=== PATIENT | male | born 1980 | race Caucasian/White ===

== ENCOUNTER 2021-05-22 08:46 | Outpatient (RCR) | payer BC, SELFPAY ==
[2021-05-22 12:30] VITALS: BP 141/85; PULSE 70; RESP 16; TEMP 35.6; O2SAT 99
[2021-05-22] MEDS: diphenhydrAMINE HCl CAP 25 MG CAPSULE PO (12:35)
[2021-05-22] MEDS: ACETAMINOPHEN 325 MG TABLET 650 MG PO (12:36)
[2021-05-22] MEDS: FAMOTIDINE 20 MG TABLET PO (12:36)
[2021-05-22 14:12] VITALS: BP 137/84
--- NOTE | 2021-05-23 09:52 | PC.NURSE ---
Called Mr Bowles and he stated outside of being tired he is doing better. He has no questions at this time.
== END 2021-05-22 17:00 ==
LOC: AMCINF 08:46
PROVIDERS: PCP Family Medicine; Visit Provider Internal Medicine Hematology & Oncology
DX: U07.1 COVID-19 (principal)
CPT/HCPCS: A9270; M0243; Q0243

== ENCOUNTER 2021-12-10 16:46 | Emergency (ER) | payer BC, SELFPAY ==
[2021-12-10 16:50] VITALS: BP 144/84; PULSE 84; RESP 16; TEMP 36.5; O2SAT 100
--- NOTE | 2021-12-10 17:02 | ED.GENADULT ---
HPI - General Adult General Chief complaint: Upper Respiratory Infection Stated complaint: lump on left side of throat Time Seen by Provider: 12/10/21 16:55 Source: patient Mode of arrival: ambulatory Limitations: no limitations History of Present Illness HPI narrative: Patient presents today complaining of swelling to his left neck that started today with some pain to the neck that started yesterday. Denies any recent illness, but states he has been feeling rundown recently. States the pain is only present when he touches the area. Currently rates the pain with pressure 3/10. He has tried no medication for symptoms prior to arrival. Related Data Home Medications Medication Instructions Recorded Confirmed losartan 100 mg tablet 1 tablet PO DAILY 12/10/21 12/10/21 omeprazole 40 mg capsule,delayed 1 cap PO DAILY 12/10/21 12/10/21 release sertraline 100 mg tablet 1 tablet PO DAILY 12/10/21 12/10/21 Allergies Allergy/AdvReac Type Severity Reaction Status Date / Time No Known Allergies Allergy Verified 12/10/21 16:54 Review of Systems Review of Systems: CONSTITUTIONAL: Denies body aches, fever, chills, or sweats. EYES: Denies visual changes, redness, or discharge. ENT: Denies rhinorrhea, congestion, sore throat, or otalgia.+ Neck tenderness and swelling CARDIOVASCULAR: Denies chest pain, palpitations, or edema. RESPIRATORY: Denies cough or dyspnea. GASTROINTESTINAL: Denies abdominal pain, nausea, vomiting, or diarrhea. GENITOURINARY: Denies dysuria or hematuria. SKIN: Denies rash, itching, or wounds. MUSCULOSKELETAL: Denies back pain, joint pain, or myalgia. NEUROLOGIC: Denies headache, numbness, tingling, or weakness. PSYCH: Denies depression or anxiety. PMFSH Social History Social History Smoking status: Former smoker Additional smoking assessment comments: socially in college Spiritual care concerns: No Comments At time of signature, I have reviewed and agree with nursing past medical, surgical, social and family history unless otherwise noted. Please see nursing chart for further information. There is no relevant family history pertinent to the presenting complaint Exam Narrative: GENERAL: Well-appearing, well-nourished, and in no acute distress. HEAD: Normocephalic, atraumatic. EYES: EOMI. No redness or drainage. Conjunctivae normal. ENT: Mucous membranes pink and moist. Nares clear. No rhinorrhea. TMs normal bilaterally. Throat normal. Uvula midline. NECK: Normal AROM. Supple. Left tonsillar lymph node tenderness with mild swelling. CHEST: No respiratory distress. EXTREMITIES: Normal range of motion. No edema. SKIN: Warm, dry, no rash. Capillary refill normal. Normal skin turgor. NEURO: No focal deficits. Alert and oriented x3. Gait steady. PSYCH: Normal affect. No signs of depression or anxiety. Course Course Level of Care: Express Care Visit Vital Signs Vital signs: Vital Signs Temperature 97.7 F 12/10/21 16:50 Pulse Rate 84 12/10/21 16:50 Respiratory Rate 16 12/10/21 16:50 Blood Pressure 144/84 H 12/10/21 16:50 Pulse Oximetry 100 12/10/21 16:50 Oxygen Delivery Room Air 12/10/21 16:50 Temperature 97.7 F 12/10/21 16:50 Pulse Rate 84 12/10/21 16:50 Respiratory Rate 16 12/10/21 16:50 Blood Pressure 144/84 H 12/10/21 16:50 Pulse Oximetry 100 12/10/21 16:50 Oxygen Delivery Room Air 12/10/21 16:50 Reviewed. Pt has been instructed to follow up with his PCP regarding his elevated blood pressure today. Medical Decision Making Differential Diagnosis Differential Diagnosis: Lymphadenitis, AOM, viral syndrome, pharyngitis Vital Signs Vital Signs: Vital Signs Temperature 97.7 F 12/10/21 16:50 Pulse Rate 84 12/10/21 16:50 Respiratory Rate 16 12/10/21 16:50 Blood Pressure 144/84 H 12/10/21 16:50 Pulse Oximetry 100 12/10/21 16:50 Oxygen Delivery Room Air 0
== END 2021-12-10 17:17 | disposition home or self-care (01) ==
PROVIDERS: Emergency Provider Nurse Practitioner; PCP Family Medicine
DX: R59.1 Generalized enlarged lymph nodes (principal); R59.0 Localized enlarged lymph nodes; Z87.891 Personal history of nicotine dependence
CPT/HCPCS: 99211; G0463

== ENCOUNTER 2025-01-07 00:17 | Day surgery (SDC) | payer BC, SELFPAY ==
[2024-12-24 09:54] VITALS: BMI 38.7
--- OUTSIDE RECORDS SUMMARY | 2025-01-07 00:19 | XMS_ITS | Patient Health Record ---
Author Organization [facility] [employer] Address [address] [place] [address] Care Team Providers Care Manager Telemarketing Name Role Phone David OCONNOR, Lion Primary Care Provider Unavailab bill Keily Ander Unavailable [phone] Allergies No Known Allergies Results Component Value Reference Range Notes UDT Reviewed date:10/19/2024 08:51:24 AM Interpretation: Performing Lab: Notes/Report: THC NEG 0 - 50 ng/ml Cocaine NEG 0 - 300 ng/ml Amphetamine NEG 0 - 1000 ng/ml Buprenorphine (BUP) NEG 0 - 10 ng/ml Secobarbital (Bar) NEG 0 - 300 ng/ml Oxazepam (BZO) NEG 0 - 300 ng/ml 7-ubmylzhgta-1,3-ajtdcyoh-2,3-diphenylpyrrolidine (OCTAVIANO P) NEG 0 - 300 ng/ml Methamphetamine (MET) NEG 0 - 1000 ng/ml Methylenedioxymethamphetamine (MDMA) NEG 0 - 500 ng/ml Morphine (MOP 300/[id number]) NEG 0 - 300 ng/ml Methadone (MTD) NEG 0 - 300 ng/ml Phencyclidine (PCP) NEG 0 - 25 ng/ml Nortriptyline (TCA) NEG 0 - 1000 ng/ml Oxycodone NEG 0 - 300 ng/ml x NEG 0 - 300 ng/ml UDT Reviewed date:05/14/2024 09:30:45 AM Interpretation: Performing Lab: Notes/Report: THC N 0 - 50 ng/ml Cocaine N 0 - 300 ng/ml Amphetamine N 0 - 1000 ng/ml Buprenorphine (BUP) N 0 - 10 ng/ml Secobarbital (Bar) N 0 - 300 ng/ml Oxazepam (BZO) N 0 - 300 ng/ml 5-pcjuosardq-3,0-cecwzage-0,3-diphenylpyrrolidine (OCTAVIANO P) N 0 - 300 ng/ml Methamphetamine (MET) N 0 - 1000 ng/ml Methylenedioxymethamphetamine (MDMA) N 0 - 500 ng/ml Morphine (MOP 300/EYY1992) N 0 - 300 ng/ml Methadone (MTD) N 0 - 300 ng/ml Phencyclidine (PCP) N 0 - 25 ng/ml Nortriptyline (TCA) N 0 - 1000 ng/ml Oxycodone N 0 - 300 ng/ml x N 0 - 300 ng/ml Reason For Referral No Information Medications Medication SIG (Take, Route, Frequency, Duration) Notes Start Date End Date Status Omeprazole 40 MG TAKE 1 CAPSULE BY MO [facility] DAILY Oral; Duration: 90 Days Active Trintellix 20 MG 1 tablet Orally Once a day; Duration: 90 days Active Losartan Potassium 100 MG TAKE 1 TABLET BY MOUTH EVERY DAY Oral; Duration: 90 Days Active Social History Tobacco Use: Social History Observation Description Date Details (start date - stop date) Never Smoker NA - NA Sex Assigned At : Social History Observation Description Sex Assigned At Male Tobacco Control (Standard) Question Answer Notes Tobacco use: Nonsmoker AUDIT-C (Standard) Question Answer Notes Did you have a drink contain ing alcohol in the past year? Yes How often did you have six o r more drinks on one occasion in the past year? Never (0 point) How many drinks did you have on a typical day when you were drinking in the past year? 1 or 2 drinks (0 point) How often did you have a dri nk containing alcohol in the past year? 2 to 3 times a week (3 points) Problems Problem Type SNOMED Code ICD Code Onset Dates Problem Status W/U Status Risk Notes Problem Severe recurrent major depression without psychotic features (56041530) Major depressive disorder, recurrent severe without psychotic features (F33.2) Active confirmed Problem Essential hypertension (56150061) Essential (primary) hypertension (I10) Active confirmed Problem Generalized anxiety disorder (93448494) DINAH (generalized anxiety disorder) (F41.1) Active confirmed Problem Attention deficit hyperactivity disorder (843522040) Attention deficit hyperactivity disorder (ADHD), unspecified ADHD type (F90.9) Active confirmed Problem Poor concentration (78580353) Poor concentration (R41.840) Active confirmed Vital Signs Heart Rate 75 /min 10/29/2024 255.6 Height-cm 167.64 cm 10/29/2024 255.6 Blood pressure diastolic 82 mm Hg 10/29/2024 255 .6 Weight-kg 115.94 kg 10/29/2024 255.6 Height 66.0 in 10/29/2024 255.6 Blood pressure systolic 127 mm Hg 10/29/2024 255. 6 Weight 255.6 lbs 10/29/2024 255.6 BMI 41.25 kg/m2 10/29/2024 255.6 Encounters Encounter Location Date Provider Diagnosis [place] [id number] [facility] [address] [place] [address] 05/14/2024 Ander Keily Major depressive disorder, recurrent severe without psychotic features F33.2 and DINAH (generalized anxiety disorder) F41.1 [place] [id number] [facility] [address] [facility] [address] [place] [address] 05/28/2024 Ander Keily Major depressive disorder, recurrent severe without psychotic features F33.2 and DINAH (generalized anxiety disorder) F41.1 [place] [address] [facility] [address] [place] [address] 06/25/2024 Ander Keily Major depressive disorder, recurrent severe without psychotic features F33.2 ; DINAH (generalized anxiety disorder) F41.1 and Essential (primary) hypertension I10 [place] [id number] [address] 09/17/2024 Ander Keily [facility] [address] [facility] [address] [place] [address] 09/24/2024 Ander Keily Encounter for screen ing for cardiovascular disorders Z13.6 ; Major depressive disorder, recurrent severe without psychotic features F33.2 ; DINAH (generalized anxiety disorder) F41.1 ; Essential (primary) hypertension I10 and Poor concentration R41.840 [facility] [address] [facility] [address] [place] [address] 10/15/2024 Ander Keily Attention deficit hyperactivity disorder (ADHD), unspecified ADHD type F90.9 [place] [id number] [place] [address] 10/29/2024 Ander Keily Major depressive disorder, recurrent severe without psychotic features F33.2 ; DINAH (generalized anxiety disorder) F41.1 ; Essential (primary) hypertension I10 ; Encounter for screening for depression Z13.31 and Encounter for screening for cardiovascular disorders Z13.6 [facility] [employer] [facility] [address] [place] [address] 09/07/2024 Ander Michaud [facility] [employer] [facility] [address] [place] [address] 09/02/2024 Ander Keily [facility] [employer] [facility] [address] [facility] [address] [place] [address] 09/02/2024 Ander Keily [facility] [employer] [facility] [address] [place] [address] 12/28/2024 Ander Desaiam Major depressive disorder, recurrent severe without psychotic features F33.2 Assessments Encounter Date Diagnosis (ICD Code) Assessment Notes Treatment Notes Treatment Clinical Notes Section Notes 05/14/2024 Major depressive disorder, recurrent severe without psychotic features (ICD-10 - F33.2) Electronic Prior Authorization was requested for Trintellix 20 MG Tablet. Provider can order medication once approval received. Major Depressive Disorder, recurrent - Assessment: Patient reports a long history of depression with periods of remission, currently experiencing a depressive episode for the last 6 months. He failed previous treatments with bupropion, sertraline, and escitalopram. Symptoms include lack of motivation, decreased energy, sleep disturbances, weight gain, and occasional passing thoughts of suicide. - Plan: - Taper off escitalopram: Decrease to 5 mg daily for one week, then discontinue. - Initiate Trintellix: Start at 5 mg daily for one week, increase to 10 mg daily for one week, and then increase to 20 mg daily. - Begin prior authorization process for TMS therapy. - Reassess his mood improvement in 4-6 weeks to determine the need for TMS or further treatment adjustments. Anxiety - Assessment: Patient reports experiencing anxiety alongside depression. - Plan: Monitor anxiety levels during follow-up visits and adjust treatment as needed. Anger and irritability - Assessment: Patient reports quickness to anger, mainly directed at his . Triggers include things not working properly and feeling undermined or unappreciated. - Plan: - Continue therapy with Mita Ramsey to address anger management and relationship issues. - Monitor the effect of Trintellix on his irritability during follow-up visits. Medication-induced sexual side effects - Assessment: Patient reports delayed ejaculation as a side effect of escitalopram. - Plan: - Taper off escitalopram as mentioned above. - Initiate Trintellix, which may help reverse sexual side effects. - Monitor sexual side effects during follow-up visits. Alcohol consumption - Assessment: Patient reports drinking 2-3 drinks every other day. - Plan: Encourage the patient to reduce alcohol consumption and monitor during follow-up visits. Family history of bipolar disorder - Assessment: Patient has a family history of bipolar disorder but has not experienced any manic episodes. - Plan: Continue to monitor for any signs of his mood elevation during follow-up visits. Follow-up - Plan: - Schedule a follow-up appointment in 2 weeks to assess medication tolerance and initial response. - Determine follow-up frequency based on the patient's progress. - Goal is to achieve at least 50% improvement in 4-6 weeks. 05/14/2024 DINAH (generalized anxiety disorder) (ICD-10 - F41.1) Major Depressive Disorder, recurrent - Assessment: Patient reports a long history of depression with periods of remission, currently experiencing a depressive episode for the last 6 months. He failed previous treatments with bupropion, sertraline, and escitalopram. Symptoms include lack of motivation, decreased energy, sleep disturbances, weight gain, and occasional passing thoughts of suicide. - Plan: - Taper off escitalopram: Decrease to 5 mg daily for one week, then discontinue. - Initiate Trintellix: Start at 5 mg daily for one week, increase to 10 mg daily for one week, and then increase to 20 mg daily. - Begin prior authorization process for TMS therapy. - Reassess his mood improvement in 4-6 weeks to determine the need for TMS or further treatment adjustments. Anxiety - Assessment: Patient reports experiencing anxiety alongside depression. - Plan: Monitor anxiety levels during follow-up visits and adjust treatment as needed. Anger and irritability - Assessment: Patient reports quickness to anger, mainly directed at his . Triggers include things not working properly and feeling undermined or unappreciated. - Plan: - Continue therapy with Mita Ramsey to address anger management and relationship issues. - Monitor the effect of Trintellix on his irritability during follow-up visits. Medication-induced sexual side effects - Assessment: Patient reports delayed ejaculation as a side effect of escitalopram. - Plan: - Taper off escitalopram as mentioned above. - Initiate Trintellix, which may help reverse sexual side effects. - Monitor sexual side effects during follow-up visits. Alcohol consumption - Assessment: Patient reports drinking 2-3 drinks every other day. - Plan: Encourage the patient to reduce alcohol consumption and monitor during follow-up visits. Family history of bipolar disorder - Assessment: Patient has a family history of bipolar disorder but has not experienced any manic episodes. - Plan: Continue to monitor for any signs of his mood elevation during follow-up visits. Follow-up - Plan: - Schedule a follow-up appointment in 2 weeks to assess medication tolerance and initial response. - Determine follow-up frequency based on the patient's progress. - Goal is to achieve at least 50% improvement in 4-6 weeks. 05/28/2024 Major depressive disorder, recurrent severe without psychotic features (ICD-10 - F33.2) Electronic Prior Authorization was requested for Trintellix 20 MG Tablet. Provider can order medication once approval received. Depression - Assessment: Patient reports feeling a little better after transitioning to Trintellix 10 mg daily and discontinuing the SSRI. They still experience some anxiety and sadness but feel less hopeless. No suicidal ideation reported. - Plan: - Increase Trintellix dosage to 20 mg daily for one month. - Reassess mood and symptoms in 4 weeks. - If irritability or agitation worsens at 20 mg, reduce the dosage back to 10 mg and consider pharmacogenetic testing. Anxiety - Assessment: Patient's anxiety appears to be stabilizing with the current treatment. - Plan: - No changes to the current treatment plan. - Reassess in 4 weeks. Anger and irritability - Assessment: Patient reports no recent temper outbursts or mood swings. - Plan: - No changes to the current treatment plan. - Reassess in 4 weeks. Sexual side effects - Assessment: Patient reports improvement in sexual function since transitioning to Trintellix. Patient confirms ability to have erections and ejaculate. - Plan: - Continue to monitor for any changes. - Reassess in 4 weeks. Transcranial Magnetic Stimulation (TMS) therapy - Assessment: Patient's insurance has not yet approved TMS therapy. - Plan: - Continue to follow up with insurance for approval. - If approved, contact the patient to schedule TMS therapy sessions. Follow-up - Plan: - Schedule follow-up appointment in 4 weeks to reassess the patient's progress and make any necessary adjustments to the treatment plan. - Instruct patient to contact if symptoms worsen or new side effects develop. 06/25/2024 Major depressive disorder, recurrent severe without psychotic features (ICD-10 - F33.2) Electronic Prior Authorization was requested for Trintellix 20 MG Tablet. Provider can order medication once approval received. Depression - Assessment: Patient reports significant improvement in depressive symptoms since the last visit, with a depression score of 6 (previously 17). Patient reports feeling much better and more even keel since starting Quintalics. - Plan: - Continue current treatment with Quintalics 10 mg daily. - Schedule a follow-up appointment in 3 months. - Encourage the patient to contact the clinic if symptoms worsen or if they need to see the provider sooner. Anxiety - Assessment: Patient reports feeling more even-keeled and less mood swings since starting Quintalics. - Plan: - Continue monitoring anxiety levels during follow-up appointments. - Encourage the patient to practice stress management techniques and seek support if needed. Anger Management - Assessment: Patient reports only two instances of losing temper in the past month, which is an improvement. Patient notes that anger episodes were shorter and not directed at others. - Plan: - Encourage the patient to continue monitoring their anger and utilize coping strategies when feeling overwhelmed or irritated. Hypertension - Assessment: Patient is currently taking Losartan for hypertension management. Patient reports blood pressure is stable. - Plan: - Add Losartan to the medication list. - Encourage the patient to monitor their blood pressure regularly and report any significant changes. - Continue current treatment and reassess during the next appointment. Follow-up - Plan: - Schedule a follow-up appointment in 3 months. - Remind the patient that they can contact the clinic or walk in if they need to see the provider sooner. - Prescribe 90-day supply of medication. 10/15/2024 Attention deficit hyperactivity disorder (ADHD), unspecified ADHD type (ICD-10 - F90.9) Summary of Findings Subject: Male, age 34 to 43 Assessment Date: October 15, 2024 ASRS Result: Indicative of ADHD Cognitive Markers Outside Typical Range: 4 markers This profile shows strong executive function in planning and working memory, but significant deficits in attention accuracy, sustained attention, and impulsivity. These issues are consistent with the ADHD profile noted in the ASRS results. Cognitive Profile Analysis Strengths: Planning (76th percentile): Strong ability to organize and plan. Working Memory (65th percentile): Well-developed short-term executive storage and manipulation. Deficits: Attention (Feature Match): Number of Errors: 93rd percentile (very high) suggests difficulty filtering distractions or staying accurate under time pressure. Reaction Time: Borderline slow, suggesting possible hesitation or inconsistent focus. Impulsivity: Marked as both faster and less accurate, reinforcing a pattern of response impulsiveness. Sustained Attention (SART): Commission errors (1st percentile) and Reaction time variability (1st percentile) show extremely poor consistency and over-responsive ness. Slowing after errors (12th percentile) suggests inadequate adjustment or self-monitoring after mistakes. Response Inhibition: All markers fall in the lower third percentile range, indicating mild difficulty suppressing responses to irrelevant or conflicting information. Non-Pharmacolog ic Treatment Recommendations 1. Impulse Control and Self-Regulation Training Practice delaying responses during tasks: Use go-no-go or stop-signal training games Introduce deliberate response delay techniques (counting to three before acting) Role-play situations requiring inhibition and practice alternate responses 2. Attention Consistency Training Use attention-shapi ng tools such as: Digital programs like Cognifit, BrainHQ, or Peak that emphasize sustained focus and error monitoring Paper-based tasks (e.g., grid julia-through tasks) that require slow, careful work over time 3. Mindfulness-Bas ed Attention and Error Awareness Introduce 10 to 15 minutes daily of mindfulness practice to improve post-error reflection and reduce automatic responding Use guided sessions that emphasize body scan or focused breathing 4. CBT Strategies Focused on Monitoring and Response Adjustment Address error patterns and impulsive actions by: Creating cognitive reframing strategies for mistakes Building internal cueing systems for self-checks during work Using structured worksheets to track types and patterns of errors 5. Structured Environment with External Feedback Employ visual checklists and real-time progress indicators during tasks Provide external feedback at regular intervals (e.g., reminders, timers, performance alerts) 6. Physical Activity with Coordination Elements Activities such as martial arts, dance, or team sports that demand inhibition, timing, and redirection Target 30 to 40 minutes of activity, 4 to 5 times per week 7. Routine Stabilization Establish consistent wake, meal, and sleep schedules to reduce cognitive fatigue Minimize multitasking and build transitions between work and rest periods This profile reflects a classic presentation of ADHD with strong planning capacity but significant breakdowns in [id number] t regulation, accuracy, and sustained focus. Treatment should focus on improving error monitoring, attention consistency, and impulse delay through structured training and behavioral strategies. 10/29/2024 Major depressive disorder, recurrent severe without psychotic features (ICD-10 - F33.2) Electronic Prior Authorization was requested for Trintellix 20 MG Tablet. Provider can order medication once approval received. Electronic Prior Authorization was requested for Trintellix 20 MG Tablet. Provider can order medication once approval received. Non-Pharmacologic Treatment Recommendations1. Impulse Control and Self-Regulation TrainingPractice delaying responses during tasks: Use go-no-go or stop-signal training games Introduce deliberate response delay techniques (counting to three before acting) Role-play situations requiring inhibition and practice alternate responses 2. Attention Consistency TrainingUse attention-shaping tools such as: Digital programs like Cognifit, BrainHQ, or Peak that emphasize sustained focus and error monitoring Paper-based tasks (e.g., grid julia-through tasks) that require slow, careful work over time 3. Mindfulness-Based Attention and Error AwarenessIntroduce 10 to 15 minutes daily of mindfulness practice to improve post-error reflection and reduce automatic responding Use guided sessions that emphasize body scan or focused breathing 4. CBT Strategies Focused on Monitoring and Response AdjustmentAddress error patterns and impulsive actions by: Creating cognitive reframing strategies for mistakes Building internal cueing systems for self-checks during work Using structured worksheets to track types and patterns of errors 5. Structured Environment with External FeedbackEmploy visual checklists and real-time progress indicators during tasks Provide external feedback at regular intervals (e.g., reminders, timers, performance alerts) 6. Physical Activity with Coordination ElementsActivities such as martial arts, dance, or team sports that demand inhibition, timing, and redirection Target 30 to 40 minutes of activity, 4 to 5 times per week 7. Routine StabilizationEstabli sh consistent wake, meal, and sleep schedules to reduce cognitive fatigue Minimize multitasking and build transitions between work and rest periods 09/24/2024 Encounter for screening for cardiovascular disorders (ICD-10 - Z13.6) 10/29/2024 DINAH (generalized anxiety disorder) (ICD-10 - F41.1) Non-Pharmacologic Treatment Recommendations1. Impulse Control and Self-Regulation TrainingPractice delaying responses during tasks: Use go-no-go or stop-signal training games Introduce deliberate response delay techniques (counting to three before acting) Role-play situations requiring inhibition and practice alternate responses 2. Attention Consistency TrainingUse attention-shaping tools such as: Digital programs like Cognifit, BrainGFRANQQ, or Peak that emphasize sustained focus and error monitoring Paper-based tasks (e.g., grid julia-through tasks) that require slow, careful work over time 3. Mindfulness-Based Attention and Error AwarenessIntroduce 10 to 15 minutes daily of mindfulness practice to improve post-error reflection and reduce automatic responding Use guided sessions that emphasize body scan or focused breathing 4. CBT Strategies Focused on Monitoring and Response AdjustmentAddress error patterns and impulsive actions by: Creating cognitive reframing strategies for mistakes Building internal cueing systems for self-checks during work Using structured worksheets to track types and patterns of errors 5. Structured Environment with External FeedbackEmploy visual checklists and real-time progress indicators during tasks Provide external feedback at regular intervals (e.g., reminders, timers, performance alerts) 6. Physical Activity with Coordination ElementsActivities such as martial arts, dance, or team sports that demand inhibition, timing, and redirection Target 30 to 40 minutes of activity, 4 to 5 times per week 7. Routine StabilizationEstabli sh consistent wake, meal, and sleep schedules to reduce cognitive fatigue Minimize multitasking and build transitions between work and rest periods 12/28/2024 Major depressive disorder, recurrent severe without psychotic features (ICD-10 - F33.2) 09/24/2024 DINAH (generalized anxiety disorder) (ICD-10 - F41.1) 10/29/2024 Essential (primary) hypertension (ICD-10 - I10) Non-Pharmacologic Treatment Recommendations1. Impulse Control and Self-Regulation TrainingPractice delaying responses during tasks: Use go-no-go or stop-signal training games Introduce deliberate response delay techniques (counting to three before acting) Role-play situations requiring inhibition and practice alternate responses 2. Attention Consistency TrainingUse attention-shaping tools such as: Digital programs like Cognifit, BrainHQ, or Peak that emphasize sustained focus and error monitoring Paper-based tasks (e.g., grid julia-through tasks) that require slow, careful work over time 3. Mindfulness-Based Attention and Error AwarenessIntroduce 10 to 15 minutes daily of mindfulness practice to improve post-error reflection and reduce automatic responding Use guided sessions that emphasize body scan or focused breathing 4. CBT Strategies Focused on Monitoring and Response AdjustmentAddress error patterns and impulsive actions by: Creating cognitive reframing strategies for mistakes Building internal cueing systems for self-checks during work Using structured worksheets to track types and patterns of errors 5. Structured Environment with External FeedbackEmploy visual checklists and real-time progress indicators during tasks Provide external feedback at regular intervals (e.g., reminders, timers, performance alerts) 6. Physical Activity with Coordination ElementsActivities such as martial arts, dance, or team sports that demand inhibition, timing, and redirection Target 30 to 40 minutes of activity, 4 to 5 times per week 7. Routine StabilizationEstabli sh consistent wake, meal, and sleep schedules to reduce cognitive fatigue Minimize multitasking and build transitions between work and rest periods 06/25/2024 DINAH (generalized anxiety disorder) (ICD-10 - F41.1) Depression - Assessment: Patient reports significant improvement in depressive symptoms since the last visit, with a depression score of 6 (previously 17). Patient reports feeling much better and more even keel since starting Quintalics. - Plan: - Continue current treatment with Quintalics 10 mg daily. - Schedule a follow-up appointment in 3 months. - Encourage the patient to contact the clinic if symptoms worsen or if they need to see the provider sooner. Anxiety - Assessment: Patient reports feeling more even-keeled and less mood swings since starting Quintalics. - Plan: - Continue monitoring anxiety levels during follow-up appointments. - Encourage the patient to practice stress management techniques and seek support if needed. Anger Management - Assessment: Patient reports only two instances of losing temper in the past month, which is an improvement. Patient notes that anger episodes were shorter and not directed at others. - Plan: - Encourage the patient to continue monitoring their anger and utilize coping strategies when feeling overwhelmed or irritated. Hypertension - Assessment: Patient is currently taking Losartan for hypertension management. Patient reports blood pressure is stable. - Plan: - Add Losartan to the medication list. - Encourage the patient to monitor their blood pressure regularly and report any significant changes. - Continue current treatment and reassess during the next appointment. Follow-up - Plan: - Schedule a follow-up appointment in 3 months. - Remind the patient that they can contact the clinic or walk in if they need to see the provider sooner. - Prescribe 90-day supply of medication. 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 Provider can order medication once approval received. 05/28/2024 DINAH (generalized anxiety disorder) (ICD-10 - F41.1) Depression - Assessment: Patient reports feeling a little better after transitioning to Trintellix 10 mg daily and discontinuing the SSRI. They still experience some anxiety and sadness but feel less hopeless. No suicidal ideation reported. - Plan: - Increase Trintellix dosage to 20 mg daily for one month. - Reassess mood and symptoms in 4 weeks. - If irritability or agitation worsens at 20 mg, reduce the dosage back to 10 mg and consider pharmacogenetic testing. Anxiety - Assessment: Patient's anxiety appears to be stabilizing with the current treatment. - Plan: - No changes to the current treatment plan. - Reassess in 4 weeks. Anger and irritability - Assessment: Patient reports no recent temper outbursts or mood swings. - Plan: - No changes to the current treatment plan. - Reassess in 4 weeks. Sexual side effects - Assessment: Patient reports improvement in sexual function since transitioning to Trintellix. Patient confirms ability to have erections and ejaculate. - Plan: - Continue to monitor for any changes. - Reassess in 4 weeks. Transcranial Magnetic Stimulation (TMS) therapy - Assessment: Patient's insurance has not yet approved TMS therapy. - Plan: - Continue to follow up with insurance for approval. - If approved, contact the patient to schedule TMS therapy sessions. Follow-up - Plan: - Schedule follow-up appointment in 4 weeks to reassess the patient's progress and make any necessary adjustments to the treatment plan. - Instruct patient to contact if symptoms worsen or new side effects develop. 09/24/2024 Essential (primary) hypertension (ICD-10 - I10) 06/25/2024 Essential (primary) hypertension (ICD-10 - I10) Depression - Assessment: Patient reports significant improvement in depressive symptoms since the last visit, with a depression score of 6 (previously 17). Patient reports feeling much better and more even keel since starting Quintalics. - Plan: - Continue current treatment with Quintalics 10 mg daily. - Schedule a follow-up appointment in 3 months. - Encourage the patient to contact the clinic if symptoms worsen or if they need to see the provider sooner. Anxiety - Assessment: Patient reports feeling more even-keeled and less mood swings since starting Quintalics. - Plan: - Continue monitoring anxiety levels during follow-up appointments. - Encourage the patient to practice stress management techniques and seek support if needed. Anger Management - Assessment: Patient reports only two instances of losing temper in the past month, which is an improvement. Patient notes that anger episodes were shorter and not directed at others. - Plan: - Encourage the patient to continue monitoring their anger and utilize coping strategies when feeling overwhelmed or irritated. Hypertension - Assessment: Patient is currently taking Losartan for hypertension management. Patient reports blood pressure is stable. - Plan: - Add Losartan to the medication list. - Encourage the patient to monitor their blood pressure regularly and report any significant changes. - Continue current treatment and reassess during the next appointment. Follow-up - Plan: - Schedule a follow-up appointment in 3 months. - Remind the patient that they can contact the clinic or walk in if they need to see the provider sooner. - Prescribe 90-day supply of medication. 10/29/2024 Encounter for screening for depression (ICD-10 - Z13.31) Non-Pharmacologic Treatment Recommendations1. Impulse Control and Self-Regulation TrainingPractice delaying responses during tasks: Use go-no-go or stop-signal training games Introduce deliberate response delay techniques (counting to three before acting) Role-play situations requiring inhibition and practice alternate responses 2. Attention Consistency TrainingUse attention-shaping tools such as: Digital programs like Cognifit, BrainLanyrd, or Peak that emphasize sustained focus and error monitoring Paper-based tasks (e.g., grid julia-through tasks) that require slow, careful work over time 3. Mindfulness-Based Attention and Error AwarenessIntroduce 10 to 15 minutes daily of mindfulness practice to improve post-error reflection and reduce automatic responding Use guided sessions that emphasize body scan or focused breathing 4. CBT Strategies Focused on Monitoring and Response AdjustmentAddress error patterns and impulsive actions by: Creating cognitive reframing strategies for mistakes Building internal cueing systems for self-checks during work Using structured worksheets to track types and patterns of errors 5. Structured Environment with External FeedbackEmploy visual checklists and real-time progress indicators during tasks Provide external feedback at regular intervals (e.g., reminders, timers, performance alerts) 6. Physical Activity with Coordination ElementsActivities such as martial arts, dance, or team sports that demand inhibition, timing, and redirection Target 30 to 40 minutes of activity, 4 to 5 times per week 7. Routine StabilizationEstabli sh consistent wake, meal, and sleep schedules to reduce cognitive fatigue Minimize multitasking and build transitions between work and rest periods 10/29/2024 Encounter for screening for cardiovascular disorders (ICD-10 - Z13.6) Non-Pharmacologic Treatment Recommendations1. Impulse Control and Self-Regulation TrainingPractice delaying responses during tasks: Use go-no-go or stop-signal training games Introduce deliberate response delay techniques (counting to three before acting) Role-play situations requiring inhibition and practice alternate responses 2. Attention Consistency TrainingUse attention-shaping tools such as: Digital programs like Cognifit, BrainHQ, or Peak that emphasize sustained focus and error monitoring Paper-based tasks (e.g., grid julia-through tasks) that require slow, careful work over time 3. Mindfulness-Based Attention and Error AwarenessIntroduce 10 to 15 minutes daily of mindfulness practice to improve post-error reflection and reduce automatic responding Use guided sessions that emphasize body scan or focused breathing 4. CBT Strategies Focused on Monitoring and Response AdjustmentAddress error patterns and impulsive actions by: Creating cognitive reframing strategies for mistakes Building internal cueing systems for self-checks during work Using structured worksheets to track types and patterns of errors 5. Structured Environment with External FeedbackEmploy visual checklists and real-time progress indicators during tasks Provide external feedback at regular intervals (e.g., reminders, timers, performance alerts) 6. Physical Activity with Coordination ElementsActivities such as martial arts, dance, or team sports that demand inhibition, timing, and redirection Target 30 to 40 minutes of activity, 4 to 5 times per week 7. Routine StabilizationEstabli sh consistent wake, meal, and sleep schedules to reduce cognitive fatigue Minimize multitasking and build transitions between work and rest periods 09/24/2024 Poor concentration (ICD-10 - R41.840) 05/14/2024 Other Learning About Depression Screening material was printed Major Depressive Disorder, recurrent - Assessment: Patient reports a long history of depression with periods of remission, currently experiencing a depressive episode for the last 6 months. He failed previous treatments with bupropion, sertraline, and escitalopram. Symptoms include lack of motivation, decreased energy, sleep disturbances, weight gain, and occasional passing thoughts of suicide. - Plan: - Taper off escitalopram: Decrease to 5 mg daily for one week, then discontinue. - Initiate Trintellix: Start at 5 mg daily for one week, increase to 10 mg daily for one week, and then increase to 20 mg daily. - Begin prior authorization process for TMS therapy. - Reassess his mood improvement in 4-6 weeks to determine the need for TMS or further treatment adjustments. Anxiety - Assessment: Patient reports experiencing anxiety alongside depression. - Plan: Monitor anxiety levels during follow-up visits and adjust treatment as needed. Anger and irritability - Assessment: Patient reports quickness to anger, mainly directed at his . Triggers include things not working properly and feeling undermined or unappreciated. - Plan: - Continue therapy with Mita Ramsey to address anger management and relationship issues. - Monitor the effect of Trintellix on his irritability during follow-up visits. Medication-induced sexual side effects - Assessment: Patient reports delayed ejaculation as a side effect of escitalopram. - Plan: - Taper off escitalopram as mentioned above. - Initiate Trintellix, which may help reverse sexual side effects. - Monitor sexual side effects during follow-up visits. Alcohol consumption - Assessment: Patient reports drinking 2-3 drinks every other day. - Plan: Encourage the patient to reduce alcohol consumption and monitor during follow-up visits. Family history of bipolar disorder - Assessment: Patient has a family history of bipolar disorder but has not experienced any manic episodes. - Plan: Continue to monitor for any signs of his mood elevation during follow-up visits. Follow-up - Plan: - Schedule a follow-up appointment in 2 weeks to assess medication tolerance and initial response. - Determine follow-up frequency based on the patient's progress. - Goal is to achieve at least 50% improvement in 4-6 weeks. 09/24/2024 Other Problem-Based Assessment and Plan Juan Carlos Bowles presents with increasing anxiety and fidgety behavior, reporting constant nervousness, difficulty relaxing, and inability to focus on multiple tasks simultaneously. Anxiety with possible Attention Deficit Hyperactivity Disorder (ADHD) Assessment: Patient reports increasing anxiety symptoms, describing constant nervousness and inability to relax. He denies experiencing panic attacks but notes a persistently elevated baseline anxiety. The anxiety is exacerbated by deadlines. Interestingly, the patient reports high energy levels coupled with low motivation. He describes difficulty focusing when multiple stimuli are present, constant fidgeting, and the need to take extensive notes to remember information. These symptoms, along with his lifelong history of fidgetiness and inability to focus on more than one thing at a time, suggest the possibility of underlying ADHD contributing to or exacerbating his anxiety symptoms. The patient denies any family history of ADHD diagnosis. Differential diagnoses include Generalized Anxiety Disorder and Adult ADHD. Plan: - Conduct computer-based ADHD testing, including: - Adult self-rating scales for ADHD - Behavior questions - Spatial planning assessment - Memory assessment - Attention assessment - Response inhibition assessment - Schedule follow-up appointment in 3-4 weeks to review test results - If ADHD is confirmed: - Discuss treatment options including: - Counseling and learning exercises - Therapy with an ADHD-specialize d therapist - Consideration of non-stimulant medications (preferred over stimulants due to addiction potential) - Educate patient that treating ADHD may also help reduce anxiety symptoms Disclaimer: This note has been transcribed using speech recognition software and serves as a reflection of the patient's visit. While efforts have been made to ensure accuracy, there may be errors, including fire engine operator inaccuracies and misspellings of medication names. This document should not be considered a verbatim record, and any discrepancies should be verified with the provider. 10/29/2024 Aleena Bowles presents with worsening anxiety and depression symptoms, reporting increased work pressure and sleep disturbances. Generalized Anxiety Disorder Assessment: Patient reports persistent anxiety since , characterized by restlessness, difficulty relaxing, and sleep disturbances. Symptoms have been exacerbated by increased work pressure due to colleagues on maternity leave. Patient has attempted sleep hygiene techniques and melatonin with minimal improvement. The anxiety appears to be significantly impacting daily functioning and quality of life. Plan: - Continue current medication regimen (Trintellix, dose not specified) - Implement non-pharmacolog ical approaches: - Self-regulation training - Deliberate response delay techniques - Digital brain games (e.g., [employer], [employer]) - Cognitive Behavioral Therapy (CBT) - Pomodoro Technique for work management (20-minute work periods with short breaks, longer break after an hour) - Follow up in 4 weeks to monitor symptoms Major Depressive Disorder Assessment: Patient reports a recent onset of depressive symptoms within the last month, coinciding with increased work pressure. The depression appears to be secondary to feeling overwhelmed at work due to staff shortages and disappointment over an unrealized promotion. No current suicidal ideation reported. Plan: - Continue current medication regimen (Trintellix, dose not specified) - Implement non-pharmacolog ical approaches as outlined for anxiety - Monitor depressive symptoms closely during 4-week follow-up Attention-Defic it/Hyperactivit y Disorder (ADHD) Assessment: ADHD testing results indicate mild ADHD based on cognitive markers. Self-rating scale score of 5 (threshold 3) suggests significant symptoms, particularly in areas of task completion, organization, procrastination , and hyperactivity. Cognitive testing revealed 4 positive markers including impulsivity, faster but less accurate responses, slowness after errors, and commission errors with reactivity. Planning and spatial planning abilities were noted to be good, while attention showed higher errors and reaction time indicated impulsivity. Plan: - Implement non-pharmacolog ical approaches: - Self-regulation training - Deliberate response delay techniques - Digital brain games (e.g., BrainLanyrd, [employer]) - Cognitive Behavioral Therapy (CBT) - Pomodoro Technique for work management - Reassess symptoms and treatment efficacy at follow-up Disclaimer: This note has been transcribed using speech recognition software and serves as a reflection of the patient's visit. While efforts have been made to ensure accuracy, there may be errors, including fire engine operator inaccuracies and misspellings of medication names. This document should not be considered a verbatim record, and any discrepancies should be verified with the provider. Non-Pharmacologic Treatment Recommendations1. Impulse Control and Self-Regulation TrainingPractice delaying responses during tasks: Use go-no-go or stop-signal training games Introduce deliberate response delay techniques (counting to three before acting) Role-play situations requiring inhibition and practice alternate responses 2. Attention Consistency TrainingUse attention-shaping tools such as: Digital programs like Cognifit, BrainLanyrd, or Peak that emphasize sustained focus and error monitoring Paper-based tasks (e.g., grid julia-through tasks) that require slow, careful work over time 3. Mindfulness-Based Attention and Error AwarenessIntroduce 10 to 15 minutes daily of mindfulness practice to improve post-error reflection and reduce automatic responding Use guided sessions that emphasize body scan or focused breathing 4. CBT Strategies Focused on Monitoring and Response AdjustmentAddress error patterns and impulsive actions by: Creating cognitive reframing strategies for mistakes Building internal cueing systems for self-checks during work Using structured worksheets to track types and patterns of errors 5. Structured Environment with External FeedbackEmploy visual checklists and real-time progress indicators during tasks Provide external feedback at regular intervals (e.g., reminders, timers, performance alerts) 6. Physical Activity with Coordination ElementsActivities such as martial arts, dance, or team sports that demand inhibition, timing, and redirection Target 30 to 40 minutes of activity, 4 to 5 times per week 7. Routine StabilizationEstabli sh consistent wake, meal, and sleep schedules to reduce cognitive fatigue Minimize multitasking and build transitions between work and rest periods Plan Of Treatment Next Appt Details Provider Name:Ander Michaud , 01/10/2025 04:15:00 PM, [address], [place], [address], Insurance Providers Payer Name Payer Address Payer Phone Subscriber Number Group Number Insured Name Patient Relationship to Insured Coverage Start Date Coverage End Date [facility] [address] [place] [address] [id number] Juan Carlos Bowles Self - patient is the insured Medical (General) History Medical History History ICD Code Past Psychiatric History: Anxiety Disord er,Major Depressive Episode abdominal aortic aneurysm: No atrial fibrillation: No chronic fatigue syndrome: No essential tremor: No hyperlipidemia: No hypertension: No Parkinson's disease: No restless leg syndrome: No stroke: No subdural hematoma: No type 1 diabetes mellitus: No type 2 diabetes mellitus: No vitamin B12 deficiency: No vitamin D deficiency: No
--- OUTSIDE RECORDS SUMMARY | 2025-01-07 00:19 | XMS_ITS | Clinical Summary ---
Author Organization [facility] Care Team Providers Care Hack Driver Name Role Phone Mando Cyr DO Primary Care Provider [phone] Medications omeprazole (PRILOSEC) 40 MG CAPSULE DELAYED RELEASE TAKE ONE CAPSULE BY MOUTH EVERY DAY 90 Cap 3 03/08/2016 Active Social History Tobacco Use Types Packs/Day Years Used Date Smoking Tobacco: Never Assessed Sex and Gender Information Value Date Recorded Sex Assigned at Not on file Legal Sex Male 5:39 PM CDT Gender Identity Not on file Sexual Orientation Not on file Plan of Treatment Not on file Care Teams Hack Driver Relationship Specialty Start Date End Date Mando Cyr DO [address] [place] [address] PCP - General Family Medicine 09/27/24
--- OUTSIDE RECORDS SUMMARY | 2025-01-07 00:20 | XMS_ITS ---
Author Organization [facility] ison furniture [facility] Address [facility] [facility] [facility] [address] [facility] [address] [place] [address] Care Team Providers Care Systems Coordinator Name Role Phone Lion Hernandez MD Primary Care Provider Unavailab Ander Balderrama Unavailable [phone] REASON FOR VISIT Follow Up Medications Medication SIG (Take, Route, Frequency, Duration) Notes Start Date End Date Status Omeprazole 40 MG TAKE 1 CAPSULE BY MO UTH DAILY Oral; Duration: 90 Days Active Trintellix 20 MG 1 tablet Orally Once a day; Duration: 90 days Active Losartan Potassium 100 MG TAKE 1 TABLET BY MOUTH EVERY DAY Oral; Duration: 90 Days Active Social History Sex Assigned At : Social History Observation Description Sex Assigned At Male Encounters Encounter Location Date Provider Diagnosis [facility] [address] [facility] [address] [place] [address] 01/03/2025 Ander Rodriguez Plan Of Treatment Next Appt Details Provider Name:Ander Rodriguez , 01/10/2025 04:15:00 PM, [address] [place] [address] [address], [facility] [address], [place], [address], Progress Notes * Juan Carlos DANIELDOB: 0 (44 yo M)Acc No.[id number]:01/03/2025 Patient: Juan Carlos BARTON Provider: Blanca RODRIGUEZ MD :1980 A ge:44 Y S ex:Male Date:01/03/2025 Phone: [address] [id number] Pcp:Lion Hernandez MD Subjective: * Chief Complaints: * 1 . Follow Up. * Active Problem List F33.2 Major depressive dis order, recurrent severe without psychotic features Modified On:05/14/2024U Status:confirmed F41.1 DINAH (generalized anx iety disorder) Modified On:05/14/2024 Status:confirmed I10 Essential (primary) hypertension Modified On:06/25/2024 Status:confirmed R41.840 Poor concentration Modified On:09/24/2024 Status:confirmed F90.9 Attention deficit hy peractivity disorder (ADHD), unspecified ADHD type Modified On:10/15/2024 Status:confirmed * Medical History: * Medications: T aking Omeprazole 40 MG Capsule Delayed Release TAKE 1 CAPSULE BY MOUTH DAILY Oral , Taking Losartan Potassium 100 MG Tablet TAKE 1 TABLET BY MOUTH EVERY DAY Oral , Taking Trintellix 20 MG Tablet 1 tablet Orally Once a day Objective: * Vitals: Assessment: Plan: * Treatment: * Billing Information: * Visit Code: * Procedure Codes: * Electronic signature of Tuan Rodriguez MD on 01/07/2025 at 12:19 AM CDT Sign off status: Pending * Provider: Blanca RODRIGUEZ MD Date: 01/03/2025 Generated for Drake figueroa/Cory/Juneitting on: 01/07/2025 12:19 AM CDT
[2025-01-07 10:04] VITALS: BP 133/71; PULSE 61; RESP 18; TEMP 36.1; O2SAT 100
[2025-01-07] MEDS: LACTATED RINGERS 1,000 ML 150 ML IV CONT (10:15)
[2025-01-07] MEDS: SIMETHICONE ORAL SUSPENSION 20 MG/0.3 ML 30 ML BOTTLE 1.8 ML PO (10:17)
--- NOTE | 2025-01-07 10:23 | P.PNAN_ITS ---
Anes - Initial Pre Proc Eval Procedure: Operation Date: 01/07/25 11:15 Proposed Procedures p Esophagogastroduodenoscopy & Colonoscopy - Kevin Oneill MD Date/Time: 01/07/25 10:23 Surgeon: Kevin Oneill MD Pre Op Diagnosis: GERD, Screening Patient Data Age: 44 Gender: M Height: 1.68 m Weight: 114.1 kg Last Vital Signs Temp 36.1 C L 01/07/25 10:04 Pulse 61 01/07/25 10:04 Resp 18 01/07/25 10:04 BP 133/71 01/07/25 10:04 Pulse Ox 100 01/07/25 10:04 O2 Del Method Room Air 01/07/25 10:04 Allergies Allergy/AdvReac Type Severity Reaction Status Date / Time No Known Allergies Allergy Verified 01/07/25 10:02 Home Medications ?Medication ?Instructions ?Recorded ?Confirmed ?Type cholecalciferol (vitamin D3) 50 50 mcg PO DAILY 08/30/22 01/07/25 History mcg (2,000 unit) capsule albuterol sulfate 90 mcg/actuation 1 inh inhalation Q4H PRN shortness 03/21/23 12/24/24 Rx aerosol inhaler of breath or wheezing #6.7 grams calcium 250 mg (as phosphate)-vit 2 tablet PO DAILY 03/17/24 01/07/25 History D3 10 mcg (400 unit) chewable tablet (Caltrate Gummy Bites) losartan 100 mg tablet 100 mg PO DAILY #90 tabs 03/17/24 01/07/25 Rx omeprazole 40 mg capsule,delayed 40 mg PO DAILY #90 caps 03/17/24 01/07/25 Rx release vortioxetine 20 mg tablet 20 mg PO DAILY 12/24/24 01/07/25 History (Trintellix) Patient hx anesthesia problems: none Family hx anesthesia problems: none Results Review: All pre-operative results and documents have been reviewed as part of the pre-operative evaluation. [facility] Past Medical History Medical History Pure hypercholesterolemia, unspecified Dysthymic disorder Obstructive sleep apnea (adult) (pediatric) Gastro-esophageal reflux disease without esophagitis Essential (primary) hypertension Social History Social History Smoking status: Never smoker Second hand tobacco smoke exposure: No Alcohol intake: current Drinks per week: 2 Substance use: never Substance use type: does not use Do You Feel Safe in your Home?: Yes Lack of Transportation: No Lack of Food: Never True Current Housing: I Have Housing Concerned About Future Housing: No Difficulty Paying Gas/Electric Bills: No Difficulty Paying for Meds: No Currently Unemployed: No Education: Bachelor's Degree Difficulty w/ Childcare or Family Care: No Living arrangements: with family Occupation/Education: occupation Gender identity (if verbalized by the patient): Male Sexual Orientation (if Verbalized by the Patient): Straight or Heterosexual Spiritual care concerns: No Anes - Eval Final PreProcedure Day of Procedure 01/07/25 10:23 Patient weight: morbidly obese Heart: regular rate and rhythm Lungs: clear to auscultation Airway: Mallampati scale class II Neurological: alert and oriented Last oral intake: >/= 8 hours ASA classification: III Emergent: no Anesthetic plan: proceed Anesthesia type and monitoring: general GIVS and standard monitoring Results Review: All pre-operative results and documents have been reviewed as part of the pre- operative evaluation. Informed Consent: The patient's anesthetic plan and its attendant risks and benefits were discussed with the patient/family/POA. Questions were solicited and answers provided to the satisfaction of the patient/family/POA.
--- NOTE | 2025-01-07 10:56 | PM.IMHP ---
H&P: HPI History of Present Illness Date/Time: 01/07/25 10:56 Chief Complaint: Dysphagia-screening colonoscopy Narrative: patient suffering from GERD for several years, and endorses having had EGD in the past with dilatation of a stricture. In addition he is also referred for screening colonoscopy. Review of Systems Review of Systems: All systems reviewed & are unremarkable except as noted in HPI and below PMFSH Past Medical History Medical History Pure hypercholesterolemia, unspecified Dysthymic disorder Obstructive sleep apnea (adult) (pediatric) Gastro-esophageal reflux disease without esophagitis Essential (primary) hypertension Social History Social History Smoking status: Never smoker Second hand tobacco smoke exposure: No Alcohol intake: current Drinks per week: 2 Substance use: never Substance use type: does not use Do You Feel Safe in your Home?: Yes Lack of Transportation: No Lack of Food: Never True Current Housing: I Have Housing Concerned About Future Housing: No Difficulty Paying Gas/Electric Bills: No Difficulty Paying for Meds: No Currently Unemployed: No Education: Bachelor's Degree Difficulty w/ Childcare or Family Care: No Living arrangements: with family Occupation/Education: occupation Gender identity (if verbalized by the patient): Male Sexual Orientation (if Verbalized by the Patient): Straight or Heterosexual Spiritual care concerns: No Meds Home Medications and Allergies Home Medications ?Medication ?Instructions ?Recorded ?Confirmed ?Type cholecalciferol (vitamin D3) 50 50 mcg PO DAILY 08/30/22 01/07/25 History mcg (2,000 unit) capsule albuterol sulfate 90 mcg/actuation 1 inh inhalation Q4H PRN shortness 03/21/23 12/24/24 Rx aerosol inhaler of breath or wheezing #6.7 grams calcium 250 mg (as phosphate)-vit 2 tablet PO DAILY 03/17/24 01/07/25 History D3 10 mcg (400 unit) chewable tablet (Caltrate Gummy Bites) losartan 100 mg tablet 100 mg PO DAILY #90 tabs 03/17/24 01/07/25 Rx omeprazole 40 mg capsule,delayed 40 mg PO DAILY #90 caps 03/17/24 01/07/25 Rx release vortioxetine 20 mg tablet 20 mg PO DAILY 12/24/24 01/07/25 History (Trintellix) Allergies Allergy/AdvReac Type Severity Reaction Status Date / Time No Known Allergies Allergy Verified 01/07/25 10:02 Vital Signs Vital Signs - 24 hr 01/07/25 10:04 Temperature 97 F L Pulse Rate 61 Respiratory Rate 18 Blood Pressure 133/71 Pulse Oximetry 100 Oxygen Delivery Room Air Exam Const: General: cooperative and healthy appearing Resp: Effort & Inspection: normal respiratory effort and able to speak in complete sentences Auscultation: clear to auscultation bilaterally Cardio: Rate: regular rate Rhythm: regular rhythm GI: Inspection: normal to inspection GI Palp: No No hepatosplenomegaly present Auscultation: normal bowel sounds Rectal Exam: deferred Skin: General skin exam: normal color Psych: Appearance: grossly normal Mental Status: mental status grossly normal Assessment and Plan Assessment and plan (1) Gastro-esophageal reflux disease without esophagitis: Code(s): K21.9 - Gastro-esophageal reflux disease without esophagitis Status: Acute Assessment and Plan: The patient is deemed a good candidate for the procedure. Consent signed. Will proceed. (2) Encounter for screening colonoscopy: Code(s): Z12.11 - Encounter for screening for malignant neoplasm of colon Status: Acute
--- NOTE | 2025-01-07 11:18 | SUR.OPER ---
EGD start 1102 end 1111, Colonoscopy start 1118
[2025-01-07] MEDS: SIMETHICONE ORAL SUSPENSION 20 MG/0.3 ML 30 ML BOTTLE 0.6 ML IRRIGATION (11:23)
--- NOTE | 2025-01-07 11:33 | S_PTH ---
PATIENT: Juan Carlos Bowles I LOC: [facility] U#:[id number] AGE/SX: 44/M ROOM: RE01/07/[address]: Kevin Oneill MD : [id number] BED: DIS: 01/07/2025 SPEC #: [id number] RECD: 01/07/25 13:32 STATUS: RADHA [facility] #: [id number] CRISTAL: 01/07/25 11:[address]: Kevin Oneill DEPT: [facility] Surgical RECD BY: Dilia Hopkins MLT, ([facility]) ENTERED: 01/07/25 13:32 SP TYPE: Surgical OTHR DR: Mando Cyr, DO Tissues: A - Colon Polypectomy B - Esophageal Biopsy C - Gastric Biopsy D - Gastric Biopsy E - Gastric Biopsy Procedures: Hematoxylin and Eosin Stain Gross and Microscopic Level 4
[2025-01-07 11:36] VITALS: BP 125/80; PULSE 63; RESP 23; O2SAT 100
[2025-01-07 11:46] VITALS: BP 140/66; PULSE 60; RESP 23; O2SAT 98
[2025-01-07 11:56] VITALS: BP 121/74; PULSE 60; RESP 16; O2SAT 99
== END 2025-01-07 12:09 | disposition home or self-care (01) ==
PROVIDERS: PCP Family Medicine; Referring Provider Family Medicine; Visit Provider Internal Medicine Gastroenterology
PROC: 0DJ08ZZ Inspection of Upper Intestinal Tract, Via Natural or Artificial Opening Endoscopic (ICD-10-PCS; CPT 45378; principal; 2025-01-07 11:15)
DX: Z12.11 Encounter for screening for malignant neoplasm of colon (principal); D12.2 Benign neoplasm of ascending colon; K57.30 Diverticulosis of large intestine without perforation or abscess without bleeding; K44.9 Diaphragmatic hernia without obstruction or gangrene; K31.7 Polyp of stomach and duodenum; K21.9 Gastro-esophageal reflux disease without esophagitis; E66.01 Morbid (severe) obesity due to excess calories; Z68.41 Body mass index [BMI] 40.0-44.9, adult
CPT/HCPCS: 45385; 43239; 88305; J7120